=== PATIENT | male | born 1950 | race Caucasian/White ===

== ENCOUNTER 2019-09-22 12:20 | Outpatient (CLI) | payer MEDICARE ==
--- NOTE | 2019-09-24 13:02 | XRAY Report ---
Reason: PAIN IN THORACIC SPINEM,LOW BACK PAIN Procedure Date: 09/22/2019 Accession Number: [id number] / [id number] Procedure: XR - Lumbar Spine 2 View CPT Code: Final Report FULL RESULT: EXAM: LUMBOSACRAL SPINE RADIOGRAPHY EXAM DATE: 09/22/2019 12:53 PM. CLINICAL HISTORY: PAIN IN THORACIC SPINE ,LOW BACK PAIN. COMPARISONS: None. TECHNIQUE: 3 views. FINDINGS: Alignment: Thoracic lumbar dextroscoliosis. No spondylolisthesis Bones: Five wni-lbi-brxqkjg lumbar vertebral bodies are present. No fractures or bone lesions. T4-L2 left sided Wick chilango. Disks: Diffuse osteophyte formation. Disk space narrowing, subchondral sclerosis L2 L3, L3-L4 Facets: L4-L5, L5-S1 facet arthropathy Sacroiliac Joints: Unremarkable. Soft Tissues: Vascular calcification The visualized bowel gas pattern is normal. IMPRESSION: 1. Moderate DJD. 2. Thoracic lumbar dextroscoliosis RADIA
--- NOTE | 2019-09-24 13:03 | XRAY Report ---
Reason: PAIN IN THORACIC SPINE Procedure Date: 09/22/2019 Accession Number: [id number] / [id number] Procedure: XR - Thoracic Spine 2 View CPT Code: Final Report FULL RESULT: EXAM: THORACIC SPINE RADIOGRAPHY EXAM DATE: 09/22/2019 12:52 PM. CLINICAL HISTORY: PAIN IN THORACIC SPINE. COMPARISON: LUMBAR SPINE 2 VIEW 09/22/2019 12:30 PM. TECHNIQUE: 2 views. FINDINGS: Bony detail obscured by the scoliosis Alignment: 37 degrees thoracic dextroscoliosis. Bones: No fractures or bone lesions. Wick amari from approximately T4 to L2. Amari appears intact. Disks: Scattered osteophytes Soft Tissues: Normal. The visualized lungs and cardiomediastinal silhouette are normal. IMPRESSION: 1. Thoracic 37 degree dextroscoliosis. 2. Mild DJD RADIA
== END 2019-09-22 12:21 | disposition home or self-care (01) ==
LOC: DI 12:20
PROVIDERS: ATTEND Internal Medicine
DX: M47.814 Spondylosis without myelopathy or radiculopathy, thoracic region (principal); M41.9 Scoliosis, unspecified; M47.816 Spondylosis without myelopathy or radiculopathy, lumbar region; M47.817 Spondylosis without myelopathy or radiculopathy, lumbosacral region
CPT/HCPCS: 72070; 72100

== ENCOUNTER 2020-05-10 17:17 | Emergency (ER) | payer MEDICARE, OTHER ==
[2020-05-10] MEDS ORDERED: LIDOCAINE 2% URO-JET 5 ML SYRINGE UR STA (18:15)
[2020-05-10 18:51] LABS: BILIRUBIN,URINE NEGATIVE (NEGATIVE); GLUCOSE, URINE (UA) NEGATIVE (NEGATIVE); KETONES,URINE (UA) NEGATIVE (NEGATIVE); LEUKOCYTE ESTERASE, URINE NEGATIVE (NEGATIVE); NITRITE,URINE POSITIVE (NEGATIVE); OCCULT BLOOD,URINE SMALL (NEGATIVE); PH,URINE 6.5 PH (5.0-7.5); PROTEIN,URINE NEGATIVE (NEGATIVE); UROBILINOGEN,URINE 1 (NORMAL) E.U./dL (NORMAL)
--- NOTE | 2020-05-10 19:22 | ED Physician Documentation ---
History of Present Illness - Stated complaint Stated Complaint: MALE - Chief complaint Chief Complaint: Abd Pain - Additonal information Additional information: 70-year-old male presents to the emergency department with chief complaint of urinary obstruction. He reports that since early this morning he has been unable to void. He does have a history of BPH. He did undergo a cystoscopy on 05/02/[address] through [facility]. He reports to me that the procedure went well and there were no concerning findings however a few days following the procedure he began to have dysuria and increase in urgency and frequency. He contacted his urologist and was placed on a prescription of Cipro and Pyridium for a urinary tract infection. The prescription was filled yesterday however this morning he became obstructed. He denies any history of recurrent urinary tract infections or previous problems with obstruction. He is not a diabetic. Past medical history includes hypertension, lumbar arthritis, hyper lipidemia and BPH. Meds; atorvastatin, Flomax, finasteride, Cipro, Pyridium.When patient presented to the emergency department a bladder scan was completed and it showed a greater than 500 residual. A Han catheter was placed Review of Systems Constitutional: denies: Fever, Chills Nose: denies: Rhinorrhea / runny nose, Congestion Cardiac: denies: Chest pain / pressure, Palpitations, Pedal edema Respiratory: denies: Dyspnea, Cough : reports: Dysuria, Frequency, Hesitancy, Unable to Void. denies: Hematuria, Discharge Skin: denies: Rash, Lesions Musculoskeletal: denies: Neck pain, Back pain Neurologic: denies: Generalized weakness, Focal weakness, Difficulty speaking, Syncope, Seizure, Altered mental status, Headache, LOC PD PAST MEDICAL HISTORY - Past Medical History : Benign prostate hypertrophy - Past Surgical History Past Surgical History: Yes - Present Medications Home Medications: Ambulatory Orders Medication Instructions Recorded Confirmed Cephalexin [Keflex] 500 mg PO Q6HR 10 Days capsule 03/19/15 oxyCODONE/ACET 5/325 [Percocet 5 1 each PO Q4-6H #15 tablet 03/19/15 mg/325 mg] HYDROcod/ACETAM 5/325 [[place] 5/325] 1 each PO BID #10 tablet 05/10/20 - Allergies Allergies/Adverse Reactions: Allergies Allergy/AdvReac Type Severity Reaction Status Date / Time No Known Drug Allergies Allergy Verified 05/10/20 17:28 - Social History Does the pt smoke?: No Smoking Status: Never smoker Does the pt drink ETOH?: Yes Does the pt have substance abuse?: No PD ED PE NORMAL - General General: Alert and oriented X 3, No acute distress - Neck Neck: Supple, no meningeal sign, No adenopathy - Cardiac Cardiac: RRR, No murmur, No gallop - Respiratory Respiratory: No respiratory distress, Clear bilaterally - Abdomen Abdomen: Normal bowel sounds, Soft. No: Non tender (mild suprapubic tenderness) - Male Male : Other (normal male ; circumscised. han seen exiting the penis. 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, No motor deficit Eye Opening: Spontaneous Motor: Obeys Commands Verbal: Oriented GCS Score: 15 Results - Vitals Vitals: Vital Signs - 24 hr 05/10/20 17:21 Temperature 36 C L Heart Rate 100 Respiratory 16 Rate Blood Pressure 162/116 H O2 Saturation 94 Oxygen O2 Source Room air - Labs Labs: Laboratory Tests 05/10/20 18:28 Urine Color ORANGE Urine Clarity CLEAR Urine pH 6.5 Ur Specific [place] <=1.005 Urine Protein NEGATIVE Urine Glucose (UA) NEGATIVE Urine Ketones NEGATIVE Urine Occult Blood SMALL H Urine Nitrite POSITIVE H Urine Bilirubin NEGATIVE Urine Urobilinogen 1 (NORMAL) Ur Leukocyte Esterase NEGATIVE Urine RBC 0-5 Urine WBC 4-5 Urine WBC Clumps PRESENT Ur Squamous Epith Cells RARE Squamous Urine Bacteria Few Ur Microscopic Review INDICATED Urine Culture Comments INDICATED PD MEDICAL DECISION MAKING - ED course Complexity details: reviewed results, considered differential ED course: 70-year-old male presented to the emergency department with chief complaint of urinary obstruction. This follows a recent cystoscopy as well as a newly diagnosed urinary tract infection. We did place a Han catheter today in the emergency department and promptly more than 500 mils of urine drained. His urine is positive for urinary tract infection. This time I recommend that he be discharged home with a urine Han leg bag system. He is to follow-up with his primary care doctor and the urologist in 3 to 5 days for consideration of Han removal and reevaluation of obstruction. Departure - Departure Disposition: Home, Self Care Clinical Impression: Urinary obstruction UTI (urinary tract infection) Qualifiers: Urinary tract infection type: acute cystitis Hematuria presence: without hematuria Qualified Code(s): N30.00 - Acute cystitis without hematuria Condition: Stable Record reviewed to determine appropriate education?: Yes Follow-Up: Melisa Feldman MD [Primary Care Provider] - Prescriptions: HYDROcod/ACETAM 5/325 [[place] 5/325] 1 each PO BID #10 tablet Comments: Today we placed a Han catheter. This should remain in place for the next 3 to 5 days. I would like you to follow-up very closely with your urologist or your primary care doctor. If your dysuria or pain has improved it may be reasonable to consider removing the Han catheter for a period of time to see if you are able to urinate normally at that time. Please continue the antibiotics that were previously prescribed by your urologist. If at any point you develop fevers, have abdominal pain, uncontrolled vomiting or feel that your symptoms are not improving please return to the emergency department. I have prescribed a limited amount of [place] to be used for severe pain only do not drive if taking this
[2020-05-10 19:27] LABS: CLARITY,URINE CLEAR (CLEAR)
[2020-05-10 19:28] LABS: BACTERIA,URINE Few /HPF (None Seen); RBC,URINE 0-5 /HPF (0-5); SQUAMOUS EPITHELIAL CELL,UR RARE Squamous (<= Few); WBC CLUMPS,URINE PRESENT
[2020-05-10 20:29] VITALS: BP 155/89
== END 2020-05-10 20:26 | disposition home or self-care (01) ==
LOC: ED 17:17
DX: N13.9 Obstructive and reflux uropathy, unspecified (principal); N30.00 Acute cystitis without hematuria; N40.1 Benign prostatic hyperplasia with lower urinary tract symptoms
CPT/HCPCS: 51702; 51798; 81001; 81003; 87086; 99283; 99284

== ENCOUNTER 2020-06-22 14:46 | Outpatient (CLI) | payer MEDICARE, OTHER ==
--- NOTE | 2020-06-22 17:34 | MRI Report ---
PROCEDURE: Lumbar Spine W/O INDICATIONS: LUMBAGO TECHNIQUE: Noncontrast sagittal T1 spin echo and T2 fast echo, sagittal STIR, axial T1 and T2 fast spin echo thr ough the lumbar spine. In cases with scoliosis, additional coronal T2 fast spin echo may be performe d. COMPARISON: None. FINDINGS: Image quality: Suboptimal due to hardware artifact from paraspinal rods. Alignment and Curvature: There is normal bony alignment. Bone Marrow: Marrow is of normal overall signal. No acute vertebral body compression fractures. Spinal Cord: Conus medullaris terminates at the L1 level. Visualized cord demonstrates normal signa l and size. Paraspinous Soft Tissues: No paravertebral masses. T12-L1: No canal stenosis. Minimal bilateral foraminal narrowing. L1-L2: This level partially obscured in the spinal canal is not well seen. No definite canal sten osis where visualized. Mild right foraminal narrowing. No definite left foraminal stenosis . L2-L3: This level also partially obscured by hardware artifact. There is moderate canal narrowing. Partial effacement of the left and right lateral recesses with symmetric appearance. At least mild b ilateral foraminal narrowing however suboptimal evaluation due to obscuration from hardware artifact L3-L4: Mild to moderate canal narrowing. Partial effacement of the left and right lateral recesses with symmetric appearance. Moderate bilateral foraminal stenoses although the perineural fat appears grossly preserved bilaterally. Mild dorsal epidural lipomatosis. L4-L5: Dorsal epidural lipomatosis. Mild to moderate canal narrowing. Partial effacement of the lef t and right lateral recesses with asymmetric appearance, right greater than left. Moderate left jasmin inal narrowing with slight nerve root impingement. Severe right foraminal stenosis with nerve root im pingement. L5-S1: Mild canal narrowing. Lateral recesses appear grossly patent. Mild bilateral foraminal steno ses . IMPRESSION: Multilevel lumbar spondylosis and facet arthropathy, with suboptimal evaluation due to h ardware artifact secondary to posterior spinal fixation chilango. Mild/moderate canal narrowing at L3-L4 and L4-L5. Numerous bilateral foraminal stenoses as detailed above, most pronounced at L4-L5 (right greater than left) Asymmetric subarticular narrowing at the L4-L5 level, right greater than left. Reviewed by: Jw Ortiz MD on 06/22/2020 5:33 PM PDT Approved by: Jw Ortiz MD on 06/22/2020 5:33 PM PDT Station ID: [id number]
== END 2020-06-22 14:47 | disposition home or self-care (01) ==
LOC: DI 14:46
PROVIDERS: ATTEND Physician Assistant Medical
DX: M47.816 Spondylosis without myelopathy or radiculopathy, lumbar region (principal); M47.817 Spondylosis without myelopathy or radiculopathy, lumbosacral region; M48.061 Spinal stenosis, lumbar region without neurogenic claudication; M48.07 Spinal stenosis, lumbosacral region
CPT/HCPCS: 72148

== ENCOUNTER 2021-04-26 15:18 | Outpatient (CLI) | payer OTHER ==
--- NOTE | 2021-04-26 16:08 | XRAY Report ---
PROCEDURE: Hips 2V BILAT INDICATIONS: HIP PAIN TECHNIQUE: 2 views of the bilateral hips were acquired. COMPARISON: None FINDINGS: There is no fracture or dislocation. Bilateral mild osteoarthritic changes characterized by femoro-ac etabular joint space narrowing and small marginal osteophytes. No suspicious lytic or blastic osseous lesion. Sequela joint space is maintained. Mild lower lumbar spine degenerative changes. IMPRESSION: Mild bilateral hip osteoarthritis. Reviewed by: Mario Alberto Bajwa MD on 04/26/2021 4:06 PM PDT Approved by: Mario Alberto Bawja MD on 04/26/2021 4:06 PM PDT Station ID: [id number]
== END 2021-04-26 15:19 | disposition home or self-care (01) ==
LOC: DI 15:18
PROVIDERS: ATTEND Internal Medicine
DX: M16.0 Bilateral primary osteoarthritis of hip (principal)

== ENCOUNTER 2021-09-17 08:00 | Outpatient (CLI) | payer OTHER ==
[2021-09-17 18:20] LABS: BASOPHILS % (AUTO) 0.6 %; EOSINOPHILS % (AUTO) 1.7 %; HCT - HEMATOCRIT 46.4 % (42.0-52.0); HGB - HEMOGLOBIN 15.4 g/dL (14.0-18.0); LYMPHOCYTES % (AUTO) 46.9 %; MEAN CORPUSCULAR HGB CONC 33.2 g/dL (32.0-36.0); MEAN CORPUSCULAR VOLUME 90.3 fL (80.0-94.0); MEAN PLATELET VOLUME 10.7 fL (7.4-11.4); MONOCYTES % (AUTO) 3.4 %; PLT - PLATELET COUNT 201 10^3/uL (130-450); RED BLOOD COUNT 5.14 10^6/uL (4.70-6.10); RED CELL DISTRIBUTION WIDTH 13.3 % (12.0-15.0); WHITE BLOOD COUNT 11.1 x10^3/uL (4.8-10.8)
[2021-09-17 18:21] LABS: ABNORMAL LYMPHS % (MANUAL) 0 %
[2021-09-17 18:45] LABS: PARTIAL THROMBOPLASTIN TIME 28.6 secs (24.9-33.3); PT - PROTHROMBIN TIME 11.3 secs (9.9-12.6)
[2021-09-17 20:13] LABS: BAND NEUTROPHILS % (MANUAL) 1 %; DIFFERENTIAL COMMENT MANUAL DIFFERENTIAL; EOSINOPHILS # (MANUAL) 0.2 10^3/uL (0-0.7); LYMPHOCYTES # (MANUAL) 3.4 10^3/uL (1.5-3.5); LYMPHOCYTES % (MANUAL) 31 %; MONOCYTES # (MANUAL) 0.8 10^3/uL (0.0-1.0); NEUTROPHILS # (MANUAL) 6.7 10^3/uL (1.5-6.6); PLATELET ESTIMATE, MANUAL NORMAL (130-450,000) (NORMAL); RBC MORPHOLOGY (MULTIPLE) NORMAL APPEARANCE (NORMAL)
[2021-09-17 23:36] LABS: ALBUMIN 3.7 g/dL (3.2-5.5); ALBUMIN/GLOBULIN RATIO 1.6 (1.0-2.2); BILIRUBIN,TOTAL 0.9 mg/dL (0.2-1.0); CALCIUM 9.7 mg/dL (8.5-10.3); CREATININE 0.9 mg/dL (0.6-1.2)
== END 2021-09-17 23:59 ==
LOC: LAB.R 08:00
PROVIDERS: ATTEND Internal Medicine
DX: M54.9 Dorsalgia, unspecified (principal); M96.1 Postlaminectomy syndrome, not elsewhere classified; Z20.822 Contact with and (suspected) exposure to COVID-19
CPT/HCPCS: 80053; 85025; 85610; 85730; 87640

== ENCOUNTER 2021-11-21 08:57 | Outpatient (CLI) | payer OTHER ==
[2021-11-21 09:46] LABS: BASOPHILS # (AUTO) 0.1 10^3/uL (0.0-0.1); BASOPHILS % (AUTO) 0.7 %; EOSINOPHILS # (AUTO) 0.3 10^3/uL (0.0-0.7); EOSINOPHILS % (AUTO) 2.8 %; HCT - HEMATOCRIT 47.1 % (42.0-52.0); HGB - HEMOGLOBIN 15.6 g/dL (14.0-18.0); LYMPHOCYTES # (AUTO) 4.6 10^3/uL (1.5-3.5); LYMPHOCYTES % (AUTO) 46.9 %; MEAN CORPUSCULAR HGB CONC 33.1 g/dL (32.0-36.0); MEAN CORPUSCULAR VOLUME 90.6 fL (80.0-94.0); MEAN PLATELET VOLUME 9.9 fL (7.4-11.4); MONOCYTES # (AUTO) 0.4 10^3/uL (0.0-1.0); MONOCYTES % (AUTO) 4.3 %; NEUTROPHILS # (AUTO) 4.5 10^3/uL (1.5-6.6); NEUTROPHILS % (AUTO) 45.1 %; PLT - PLATELET COUNT 179 10^3/uL (130-450); WHITE BLOOD COUNT 9.9 x10^3/uL (4.8-10.8)
[2021-11-21 09:59] LABS: ALBUMIN 3.8 g/dL (3.2-5.5); ALBUMIN/GLOBULIN RATIO 1.4 (1.0-2.2); ALKALINE PHOSPHATASE 53 IU/L (42-121); ALT ALANINE AMINOTRANSFERASE 36 IU/L (10-60); AST ASPARTATE AMINOTRANSFERASE 23 IU/L (10-42); BILIRUBIN,TOTAL 1.3 mg/dL (0.2-1.0); BUN - BLOOD UREA NITROGEN 16 mg/dL (6-20); CALCIUM 9.4 mg/dL (8.5-10.3); CARBON DIOXIDE - CO2 23 mmol/L (21-32); CHLORIDE 105 mmol/L (101-111); CHOL/HDL RATIO 2.3 (<5.0); CHOLESTEROL 156 mg/dL; CREATININE 0.8 mg/dL (0.6-1.2); GFR - MDRD 95 (>89); GLUCOSE 104 mg/dL (70-100); HDL CHOLESTEROL 69 mg/dL; LDL CHOLESTEROL,CALCULATED 68 mg/dL; POTASSIUM 4.1 mmol/L (3.5-5.0); SODIUM 136 mmol/L (135-145); TOTAL PROTEIN 6.5 g/dL (6.7-8.2); TRIGLYCERIDES 96 mg/dL; VLDL CHOLESTEROL 19 mg/dL
[2021-11-21 10:00] LABS: BILIRUBIN,URINE NEGATIVE (NEGATIVE); GLUCOSE, URINE (UA) NEGATIVE (NEGATIVE); KETONES,URINE (UA) NEGATIVE (NEGATIVE); LEUKOCYTE ESTERASE, URINE TRACE (NEGATIVE); NITRITE,URINE NEGATIVE (NEGATIVE); OCCULT BLOOD,URINE NEGATIVE (NEGATIVE); PROTEIN,URINE NEGATIVE (NEGATIVE); UROBILINOGEN,URINE 0.2 (NORMAL) E.U./dL (NORMAL)
[2021-11-21 10:06] LABS: CLARITY,URINE CLEAR (CLEAR)
[2021-11-21 10:10] LABS: INR 1.1 (0.8-1.2); PT - PROTHROMBIN TIME 12.8 secs (9.9-12.6)
[2021-11-21 10:11] LABS: BACTERIA,URINE Few /HPF (None Seen); RBC,URINE 0-5 /HPF (0-5); SQUAMOUS EPITHELIAL CELL,UR NONE SEEN (<= Few); WBC,URINE 0-3 /HPF (0-3)
[2021-11-21 10:17] LABS: PARTIAL THROMBOPLASTIN TIME 30.9 secs (24.9-33.3)
[2021-11-21 13:46] LABS: ESTIMATED AVERAGE GLUCOSE 123 mg/dL (70-100); HEMOGLOBIN A1c% 5.9 % (4.27-6.07)
== END 2021-11-21 08:58 | disposition home or self-care (01) ==
LOC: LAB 08:57
PROVIDERS: ATTEND Neurological Surgery
DX: Z01.812 Encounter for preprocedural laboratory examination (principal); N40.0 Benign prostatic hyperplasia without lower urinary tract symptoms; E78.5 Hyperlipidemia, unspecified; R73.01 Impaired fasting glucose; Z13.6 Encounter for screening for cardiovascular disorders; Z79.899 Other long term (current) drug therapy
CPT/HCPCS: 36415; 80053; 80061; 81001; 83036; 83721; 84153; 84443; 85025; 85610; 85730; 87086

== ENCOUNTER 2021-12-21 16:20 | Outpatient (CLI) | payer MEDICARE ==
[2021-12-25 16:11] LABS: VARICELLA ZOSTER VZV AB IGG 944.6 index
[2021-12-26 23:16] LABS: VARICELLA ZOSTER VIRUS IGM 0.5
== END 2021-12-21 16:21 | disposition home or self-care (01) ==
LOC: LAB 16:20
PROVIDERS: ATTEND Internal Medicine
DX: R52 Pain, unspecified (principal)
CPT/HCPCS: 36415; 86787